=== PATIENT | female | born 1945 | race Caucasian/White ===

== ENCOUNTER 2018-11-02 16:49 | Emergency (ER) | payer MEDICARE ==
[~2018-11-02] VITALS: Ht 162.6 cm; Wt 82.0 kg
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
[2018-11-02] MEDS ORDERED: AMBIEN (17:27)
[2018-11-02] MEDS ORDERED: SYMBICORT (17:27)
[2018-11-02] MEDS ORDERED: SPIRIVA (17:27)
--- NOTE | 2018-11-02 17:27 | NUR ---
PT'S BELONGINGS PLACED IN ED LOCKER. ED ROOM SECURE.
[2018-11-02 17:44] LABS: BASOPHILS # (AUTO) 0.03 x10^3/uL (0-0.1); BASOPHILS % (AUTO) 0 % (0-1); EOSINOPHILS # (AUTO) 0.07 x10^3/uL (0-0.4); EOSINOPHILS % (AUTO) 1 % (1-7); LYMPHOCYTES # (AUTO) 1.25 x10^3/uL (1-3.4); LYMPHOCYTES % (AUTO) 17 % (22-44); MD NO; MEAN CORPUSCULAR HEMOGLOBIN 29.7 pg (27.0-34.8); MEAN CORPUSCULAR HGB CONC 33.2 g/dL (32.4-35.8); MEAN CORPUSCULAR VOLUME 89.5 fL (80-100); MEAN PLATELET VOLUME 8.1 fL (7.4-10.4); MONOCYTES # (AUTO) 0.53 x10^3/uL (0.2-0.8); MONOCYTES % (AUTO) 7 % (2-9); NEUTROPHILS # (AUTO) 5.44 x10^3/uL (1.8-6.8); NEUTROPHILS % (AUTO) 74 % (42-75); PLATELET COUNT 269 x10^3/uL (130-400); RED CELL DISTRIBUTION WIDTH 14.8 % (9.6-15.2)
--- NOTE | 2018-11-02 17:44 | NUR ---
PT REPORT TO TENISHA CHAUHAN RN. PT CARE TRANSFERRED.
--- NOTE | 2018-11-02 17:52 | NUR ---
JOE RN: PATIENT REFUSED TO GIVE REGISTRATION INFROMATION. PATIENT SAYS, " I WON'T GIVE YOU ANY INFORMATION UNLESS I GET MY PHONE"
[2018-11-02 17:56] LABS: ALBUMIN 3.7 g/dL (3.4-5.0); ANION GAP 5 mmol/L (5-15); CALCIUM 9.2 mg/dL (8.5-10.1); CHLORIDE 108 mmol/L (98-107); SALICYLATE LEVEL < 1.7 mg/dL (2.8-20.0)
[2018-11-02 17:59] LABS: ALANINE AMINOTRANSFERASE 23 U/L (12-78); ALKALINE PHOSPHATASE 122 U/L (45-117); BILIRUBIN,TOTAL 0.6 mg/dL (0.2-1.0); CREATININE 0.74 mg/dL (0.55-1.02)
[2018-11-02 18:13] LABS: ACETAMINOPHEN < 2 mcg/mL (10-30)
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
[2018-11-02 18:57] LABS: CULTURE INDICATED? YES; MICROSCOPIC INDICATED
[2018-11-02 19:03] LABS: AMPHETAMINE SCREEN, URINE Negative (Negative); BARBITURATE SCREEN, URINE Negative (Negative); BENZODIAZEPINE SCREEN, URINE Negative (Negative); CANNABINOID SCREEN, URINE Negative (Negative); COCAINE SCREEN, URINE Negative (Negative); METHADONE SCREEN, URINE Negative (Negative); OPIATE SCREEN, URINE Negative (Negative)
--- NOTE | 2018-11-02 19:04 | NUR ---
Throughput RN note: Telepsych consult placed per order.
--- NOTE | 2018-11-02 19:23 | NUR ---
DR LAO, PSYCH, CALLED ED FOR PT REPORT. INFORMATION PROVIDED.
--- NOTE | 2018-11-02 22:37 | NUR ---
Throughput RN note: Pt's packet faxed to [facility], [facility], [facility], [facility].
--- NOTE | 2018-11-02 22:54 | NUR ---
PT RESTING QUIETLY ON BED, WATCHING TV; SIDE RAIL UP X1, CALL LIGHT W/IN REACH, SITTER OUTSIDE ROOM.
[2018-11-02 22:55] VITALS: BP 127/72
--- NOTE | 2018-11-02 23:36 | NUR ---
Throughput RN note: [facility] called, states they are currently full but will keep pt's packet in case they have any dc's tomorrow.
--- NOTE | 2018-11-02 23:45 | NUR ---
REPORT FROM GALINA FERREIRA. PT REMAINS IN LOCKED DOWN ROOM UNDER CONSTANT WATCH FROM SITTER AT DOOR.
--- NOTE | 2018-11-02 23:59 | NUR ---
REPORT FROM GALINA FERREIRA. PT REQUESTING MEDICATION FOR "SINUS HEADACHE" NO ORDERS CURRENTLY, WILL NOTIFY ADMITTING
--- NOTE | 2018-11-03 00:32 | NUR ---
PT CONTINUES TO REQUEST PAIN MEDICATION FOR HEADACHE, NO ADMIT MD ORDERS AT THIS TIME, PER MD MENDEZ PT OKAY TO HAVE TYLENOL 650MG PO Q 6HRS FOR PAIN. ORDER PLACED AND PT MEDICATED PER ORDERS. PT REPORTS NAPROXEN ALLERGY BUT STATES "I CAN HAVE MOTRIN THOUGH, I JUST GET ITCHY LIKE WITH BUGS FROM [facility]RO[facility]"
[2018-11-03] MEDS ORDERED: ACETAMINOPHEN 325 MG TABLET ONE ×2 (00:34→06:19)
[2018-11-03] MEDS ORDERED: ACETAMINOPHEN 325 MG TABLET PO PRN ×2 (01:00→06:00)
--- NOTE | 2018-11-03 01:25 | NUR ---
PT PLACED ON HOSPITAL BED, COOPERATIVE, LAUGHING AT TV, DENIES ANY OTHER NEEDS/CONCERNS AT THIS TIME, SITTER REMAINS AT DOOR WATCHING TV
--- NOTE | 2018-11-03 03:26 | NUR ---
PT APPEARS TO BE SLEEPING, BILATERAL CHEST RISE NOTED. SITTER REMAINS AT DOOR WATCHING PT
--- NOTE | 2018-11-03 04:04 | NUR ---
RECEIVED REPORT FROM JHON PERERA TO ASSUME PT. CARE. PT. RESTING ON HOSPITAL BED RIGHT SIDE LYING WITH NADN. EYES CLOSED. EVEN, NON-LABORED RESPIRATIONS NOTED. ROOM IS SECURED. SITTER IN DOORWAY.
--- NOTE | 2018-11-03 05:25 | NUR ---
PT. IS REQUESTING TYLENOL FOR "SINUS TERESA/FACIAL PAIN". PT. UPDATED THAT PRN TYLENOL IS NOT AVAIL UNTIL 652. PT. OFFERED NON-PHARM PAIN RELIEF; DECLINES ALL OFFERS. PT. STATES "I WANT TO GO HOME TO MY DOG, I AM NOT GOING TO HURT MYSELF, I AM SAFE". EXPLAINED LEGAL 2K AND IMPLICATIONS OF THIS TO PT. SITTER REMAINS IN DOORWAY AND ROOM IS SECURED. ALL SAFETY MEASURES OBSERVED.
--- NOTE | 2018-11-03 05:31 | NUR ---
[facility] AT TO EVAL PT. FOR ADMISSION.
[2018-11-03] MEDS ORDERED: DOCUSATE 100 MG CAPSULE PO PRN ×2 (06:00→09:00)
[2018-11-03] MEDS ORDERED: ONDANSETRON ODT 4 MG PO PRN (06:00)
--- NOTE | 2018-11-03 06:04 | NUR ---
PT. CALLED THIS RN TO ROOM. PT. STATES "I NEED TO GET OUT OF HERE, I NEED TO GET HOME TO MY DOG." RE-EXPLAINED PROCESS OF LEGAL 2K TO PT. PT. STARTED LAUGHING VERY LOUDLY STATING "OH MARK, YOU WEREN'T KIDDING WERE YOU". PT. WENT ON TO EXPLAIN HOW A FRIEND FROM [place] HAD TOLD HERE "IF YOU EVER TELL MARK THAT SHE WILL COMMIT YOU." SHE STATES HER FRIEND WHO IS AN RN TOLD HERE THAT SHE WOULD BE COMMITED FOR MAKING SI STATEMENTS BUT "I DIDN'T KNOW THAT WAS TRUE, I DON'T REALLY WANT TO HURT MYSELF, I WANT TO BE HOME WITH MY BESTFRINED(DOG AT HOME)". PT. DOES STATE SHE HAS SOMEONE TAKING CARE OF HER DOG. PT. DENIES NEEDS. CRISTO REMAINS IN [place].
--- NOTE | 2018-11-03 06:21 | NUR ---
PT. MEDICATED PER MAR FOR REPORTED 7/10 TERESA/FACIAL PAIN.
--- NOTE | 2018-11-03 07:10 | NUR ---
SBAR HAND-OFF REPORT RECEIVED FROM JHON MATHUR. ASSUMING CARE OF PATIENT. PT SLEEPING AND IS IN NO DISTRESS. CHEST RISE AND FALL OBSERVED. BREAKFAST TRAY ORDERED.
--- NOTE | 2018-11-03 08:00 | NUR ---
SBAR TELEPHONE REPORT GIVEN TO CHIN AT [facility].
--- NOTE | 2018-11-03 08:48 | NUR ---
SBAR TELEPHONE HAND-OFF REPORT GIVEN TO JHON NEELY. PT TO GO TO ROOM 389.
[2018-11-03] MEDS ORDERED: BISACODYL 10 MG SUPP PR PRN (09:00)
[2018-11-03] MEDS ORDERED: POLYETHYLENE GLYCOL 17 GM PACKET PO PRN (09:00)
[2018-11-03 17:00] LABS: CHOL/HDL RATIO 3.4; CHOLESTEROL, TOTAL 154 mg/dL (140-239); FREE T4 (FREE THYROXINE) 1.09 ng/dL (0.76-1.46); HDL CHOL % 29 % (28-40); HDL CHOLESTEROL (DIRECT) 45 mg/dL (40-60); LDL CHOLESTEROL,CALCULATED 76 mg/dL (54-169); LDL/HDL RATIO 1.7 (0.5-3.0); TRIGLYCERIDES 164 mg/dL (50-200); VLDL CHOLESTEROL 33 mg/dL (0-25)
[2018-11-03 17:04] LABS: FOLATE LEVEL > 20.0 ng/mL (3.1-17.5)
[2018-11-03] MEDS ORDERED: CITA20TA6 PO (17:29)
[2018-11-03] MEDS ORDERED: ZOLP10TA PO (17:29)
[2018-11-03] MEDS ORDERED: SIMV40TA3 PO (17:29)
[2018-11-04 06:05] LABS: BASOPHILS # (AUTO) 0.03 x10^3/uL (0-0.1); BASOPHILS % (AUTO) 0 % (0-1); EOSINOPHILS % (AUTO) 3 % (1-7); LYMPHOCYTES # (AUTO) 1.58 x10^3/uL (1-3.4); LYMPHOCYTES % (AUTO) 26 % (22-44); MD NO; MEAN CORPUSCULAR HEMOGLOBIN 29.7 pg (27.0-34.8); MEAN CORPUSCULAR HGB CONC 33.3 g/dL (32.4-35.8); MEAN CORPUSCULAR VOLUME 89.1 fL (80-100); MEAN PLATELET VOLUME 8.3 fL (7.4-10.4); MONOCYTES # (AUTO) 0.61 x10^3/uL (0.2-0.8); MONOCYTES % (AUTO) 10 % (2-9); NEUTROPHILS # (AUTO) 3.59 x10^3/uL (1.8-6.8); NEUTROPHILS % (AUTO) 60 % (42-75); PLATELET COUNT 259 x10^3/uL (130-400); RED BLOOD COUNT 4.71 x10^6/uL (3.82-5.3); RED CELL DISTRIBUTION WIDTH 15.2 % (9.6-15.2)
[2018-11-04 06:29] LABS: ALBUMIN 3.3 g/dL (3.4-5.0); ANION GAP 7 mmol/L (5-15); CALCIUM 9.1 mg/dL (8.5-10.1); CHLORIDE 107 mmol/L (98-107)
[2018-11-04 06:33] LABS: ALANINE AMINOTRANSFERASE 20 U/L (12-78); ALKALINE PHOSPHATASE 103 U/L (45-117); BILIRUBIN,TOTAL 0.6 mg/dL (0.2-1.0); TOTAL PROTEIN 6.4 g/dL (6.4-8.2)
== END 2018-11-03 09:05 ==
LOC: ED 18:45 → EDIP 21:48 → UNDOADMOB 21:48 → OBSVTOIN 11-03 08:42 → INTOOBSV 11-03 08:42
DX: F33.9 Major depressive disorder, recurrent, unspecified (principal); E78.5 Hyperlipidemia, unspecified; F41.9 Anxiety disorder, unspecified; J44.9 Chronic obstructive pulmonary disease, unspecified; Z90.710 Acquired absence of both cervix and uterus
CPT/HCPCS: 36415; 80053; 80061; 80307; 80329; 81001; 82607; 82746; 84439; 84443; 85025; 86592; 87086; 99284; G0480

== ENCOUNTER 2018-11-03 09:27 | Inpatient (IN) | payer MEDICARE ==
[~2018-11-03] VITALS: Ht 162.6 cm; Wt 82.7 kg
[2018-11-03 09:15] VITALS: BP_SYST 111; BP_SYST 126; BP_SYST 99; BP_DIAS 52; BP_DIAS 54; BP_DIAS 61
[~2018-11-03 09:27] MED LIST: AMBIEN; SPIRIVA; SYMBICORT
[2018-11-03 11:10] VITALS: BP 126/61
[2018-11-03] MEDS ORDERED: ACETAMINOPHEN 325 MG TABLET ONE (12:57)
[2018-11-03] MEDS ORDERED: ZOLP10TA PO (17:29)
[2018-11-03] MEDS ORDERED: SIMV40TA3 PO (17:29)
[2018-11-03] MEDS ORDERED: CITA20TA6 PO (17:29)
[2018-11-03 19:58] VITALS: BP 115/77
[2018-11-03] MEDS: MELATONIN 5 MG TABLET PO SCH (20:57)
[2018-11-03] MEDS: ACETAMINOPHEN 325 MG TABLET PO PRN (20:58)
[2018-11-04] MEDS: ACETAMINOPHEN 325 MG TABLET PO PRN ×2 (04:32→16:10)
[2018-11-04 07:41] VITALS: BP 165/83
[2018-11-04] MEDS: CITALOPRAM 20 MG TABLET PO SCH (08:20)
[2018-11-04] MEDS: SENNA/DOCUSATE TABLET PO SCH (08:21)
[2018-11-04 08:38] VITALS: BP 127/69
[2018-11-04 19:36] VITALS: BP 131/63
[2018-11-04] MEDS: MELATONIN 5 MG TABLET PO SCH (20:09)
[2018-11-05 07:02] VITALS: BP 146/76
[2018-11-05] MEDS: CITALOPRAM 20 MG TABLET PO SCH (09:48)
[2018-11-05] MEDS: SENNA/DOCUSATE TABLET PO SCH (09:48)
[2018-11-05] MEDS ORDERED: MELA5TAB19 PO (15:30)
[2018-11-05] MEDS ORDERED: CITA20TA9 PO (15:30)
[2018-11-05 19:53] VITALS: BP 124/75
[2018-11-05] MEDS: MELATONIN 5 MG TABLET PO SCH (20:57)
[2018-11-06 07:13] VITALS: BP 136/78
[2018-11-06] MEDS: SENNA/DOCUSATE TABLET PO SCH (08:17)
[2018-11-06] MEDS: CITALOPRAM 20 MG TABLET PO SCH (08:17)
== END 2018-11-06 09:13 | disposition home or self-care (01) | DRG 885 ==
LOC: 3E 09:27
PROVIDERS: ADMIT Psychiatry & Neurology Psychosomatic Medicine; ATTEND Psychiatry & Neurology Psychosomatic Medicine
DX: F33.2 Major depressive disorder, recurrent severe without psychotic features (principal); R45.851 Suicidal ideations; Z59.9 Problem related to housing and economic circumstances, unspecified; Z79.899 Other long term (current) drug therapy; Z83.3 Family history of diabetes mellitus; E78.5 Hyperlipidemia, unspecified; F41.9 Anxiety disorder, unspecified; Z90.710 Acquired absence of both cervix and uterus; Z88.8 Allergy status to other drugs, medicaments and biological substances
CPT/HCPCS: 93005; 99285; 92523-GN